=== PATIENT | female | born 1985 | race Caucasian/White ===

== ENCOUNTER → 2021-08-06 12:01 | Outpatient (CLI) | payer BC, SELFPAY ==
--- NOTE | ~2021-08-06 | US_ITS ---
EXAMINATION: US pelvic complete DATE: 08/06/2021 12:52 INDICATION: Right ovarian mass Comparison:No prior studies for comparison. TECHNIQUE: Multiple transabdominal and endovaginal sonographic images of the pelvis performed. FINDINGS: The uterus measures 6.5 x 3.1 x 4.5 cm. The endometrial complex measures 5 mm. The right ovary measures 3.7 x 3.9 x 4.5 cm and the left ovary measures 3.4 x 1.7 x 3.3 cm. There is a hyperechoic mass of the right ovary measuring 2.5 x 2.2 x 2.1 cm. There are small follicles in each ovary. Normal doppler signal in both ovaries. There is no free fluid in the pelvis. There are no abnormal masses seen on either side. IMPRESSION: 1. Hyperechoic right ovarian mass measuring 2.5 cm, possibly a dermoid. Consider correlation with CT pelvis to assess for macroscopic fat. Reviewed, dictated and finalized at location A. IMPRESSION: 1. Hyperechoic right ovarian mass measuring 2.5 cm, possibly a dermoid. Conside r correlation with CT pelvis to assess for macroscopic fat.
== END ==
PROVIDERS: PCP Family Medicine; Visit Provider Obstetrics & Gynecology
DX: N83.201 Unspecified ovarian cyst, right side (principal)
CPT/HCPCS: 76856

== ENCOUNTER → 2021-12-11 12:50 | Outpatient (CLI) | payer BC, SELFPAY ==
--- NOTE | ~2021-12-11 | US_ITS ---
US pelvic complete w TV DATE: 12/11/2021 13:19 INDICATION: Right ovarian cyst TECHNIQUE: Real-time imaging via transabdominal and transvaginal approaches COMPARISON: 08/06/2021 pelvic ultrasound FINDINGS: The uterus measures 7.6 cm height, 3.1 cm AP dimension. The central endometrial echo comple x measures 4 mm AP dimension. There is an approximately 4 cm mixed hypoechoic and hyperechoic lesion in the right adnexal area. Thi s may be a dermoid considering the hyperechoic apparently fatty component. Consider CT pelvis for fur ther evaluation. The left ovary is not visualized. No left adnexal mass lesion is evident. No pelvic free fluid collection is detected. IMPRESSION: 4 cm right adnexal mixed hypoechoic and hyperechoic lesion, the hyperechoic component sug gesting some fatty density, possible dermoid Consider CT pelvis correlation Reviewed, dictated and finalized at [facility]. Reviewed, dictated and finalized at location A. IMPRESSION: 4 cm right adnexal mixed hypoechoic and hyperechoic lesion, the hyp erechoic component suggesting some fatty density, possible dermoid Consider CT pelvis correlation
== END ==
PROVIDERS: PCP Family Medicine; Visit Provider Obstetrics & Gynecology
DX: N83.201 Unspecified ovarian cyst, right side (principal); N83.8 Other noninflammatory disorders of ovary, fallopian tube and broad ligament
CPT/HCPCS: 76830; 76856

== ENCOUNTER → 2022-01-22 08:45 | Outpatient (CLI) | payer BC, SELFPAY ==
--- NOTE | ~2022-01-22 | CT_ITS ---
EXAMINATION: CT abdomen pelvis w con INDICATION: Ovarian cyst TECHNIQUE: Computed tomographic images of the abdomen and pelvis were obtained after the administrati on of 100 cc of Omnipaque 350 intravenous contrast. The dose-length product (DLP) was 1117.18 mGy-cm. Automated exposure control and iterative reconstruction technique were employed. COMPARISON: Ultrasound, 12/11/2021 FINDINGS: Nodules of the visualized lung bases measure up to 3 mm, likely old granulomatous disease. The heart size is normal. The liver is diffusely low in attenuation when compared with the spleen, co nsistent with hepatic steatosis. Punctate calcifications in an otherwise normal spleen likely represe nt healed granulomatous disease. The pancreas, gallbladder, and adrenal glands are normal. The kidney s are unremarkable. No pathologically enlarged abdominal or pelvic lymph nodes are identified. There is no free intraperitoneal gas or evidence of bowel obstruction. There is a 6.4 x 4.9 cm left adnexal mass containing fat, soft tissue, and calcification. There is a 3.9 x 3.5 x 4.8 cm right adnexal mas s containing fat and soft tissue density. There is an umbilical hernia containing fat. IMPRESSION: 1. Bilateral ovarian masses with imaging features consistent with dermoid cysts. Follow-up pelvic ult rasound in 12 months should be considered. Reviewed, dictated and finalized at location A. L CONSULTANT IMPRESSION: 1. Bilateral ovarian masses with imaging features consistent with dermoid cysts . Follow-up pelvic ultrasound in 12 months should be considered.
[2022-01-22 09:03] LABS: Estimated Glomerular Filt Rate > 60
== END ==
PROVIDERS: PCP Obstetrics & Gynecology; Visit Provider Obstetrics & Gynecology
DX: N83.201 Unspecified ovarian cyst, right side (principal); N83.202 Unspecified ovarian cyst, left side
CPT/HCPCS: 74177; Q9967

== ENCOUNTER → 2022-11-10 16:06 | Outpatient (CLI) | payer BC, SELFPAY ==
--- NOTE | ~2022-11-10 | US_ITS ---
EXAMINATION: US pelvic complete w TV DATE: 11/10/2022 16:39 INDICATION: Bilateral dermoid TECHNIQUE: Multiple transabdominal and endovaginal sonographic images of the pelvis were obtained. COMPARISON: 12/11/2021, 08/06/2021; CT, 01/22/2022 FINDINGS: The uterus measures 7.8 x 2.7 x 4.1 cm. The endometrial complex measures 4 mm. The left ova ry is not visualized. The previously described left adnexal dermoid is not definitely identified. The right ovary measures 5.0 x 4.1 x 4.7 cm. There is a 2.2 x 3.1 x 3.2 cm complex mass of the right ova ry containing fat and soft tissue, consistent with the known dermoid and not significantly changed si nce the comparison examination. There is normal vascular flow in the right ovary. There is no free fl uid in the pelvis. IMPRESSION: 1. Right adnexal dermoid without significant change. 2. Left adnexal dermoid not definitely visualized which may be due to overlying bowel gas if the mass has not been surgically removed. Consider follow-up pelvic CT. Reviewed, dictated and finalized at location A. IMPRESSION: 1. Right adnexal dermoid without significant change. 2. Left adnexal dermoid not definitely visualized which may be due to overlying bowel gas if the mass has not been surgically removed. Consider follow-up pelv ic CT.
== END ==
PROVIDERS: PCP Obstetrics & Gynecology; Visit Provider Obstetrics & Gynecology
DX: D27.0 Benign neoplasm of right ovary (principal); D27.1 Benign neoplasm of left ovary
CPT/HCPCS: 76830; 76856

== ENCOUNTER 2023-09-09 10:26 | Outpatient (CLI) | payer BC, SELFPAY ==
--- NOTE | ~2023-09-09 | US_ITS ---
EXAMINATION: US pelvic complete w TV DATE: 09/09/2023 12:22 INDICATION: Bilateral ovarian dermoids. TECHNIQUE: Multiple transabdominal and transvaginal sonographic images of the pelvis were obtained. COMPARISON: Ultrasound 11/10/2022, CT abdomen and pelvis 01/22/2022 FINDINGS: TRANSABDOMINAL ULTRASOUND: The uterus measures 7.7 x 3.2 x 3.4 cm. There is no free fluid in the pelvis. TRANSVAGINAL ULTRASOUND: The endometrial complex measures 3 mm in thickness. The right ovary measures 4.3 x 4.6 x 5.6 cm and d emonstrates heterogeneous echogenicity. The left ovary measures 2.1 x 2.0 x 2.4 cm and demonstrates h eterogeneous echogenicity. There is normal vascular flow in the ovaries. IMPRESSION: 1. Heterogeneous ovaries that demonstrated fat on the prior CT, consistent with dermoids. Reviewed, dictated and finalized at location A.
== END 2023-09-09 10:27 ==
LOC: MICIMG 10:28
PROVIDERS: PCP Obstetrics & Gynecology; Visit Provider Obstetrics & Gynecology
DX: D27.1 Benign neoplasm of left ovary (principal); D27.0 Benign neoplasm of right ovary
CPT/HCPCS: 76830; 76856